=== PATIENT | female | born 1945 | race Caucasian/White ===

== ENCOUNTER → 2017-11-17 | Outpatient (CLI) | payer OTHER, MEDICARE | LOC: FIMAGING 09:20 | PROVIDERS: ATTEND Internal Medicine | DX: R92.8 Other abnormal and inconclusive findings on diagnostic imaging of breast (principal); E03.9 Hypothyroidism, unspecified; Z85.3 Personal history of malignant neoplasm of breast ==

== ENCOUNTER → 2017-12-08 | Outpatient (CLI) | payer OTHER, MEDICARE | LOC: FIMAGING 08:52 | PROVIDERS: ATTEND Internal Medicine | DX: Z13.820 Encounter for screening for osteoporosis (principal); M81.0 Age-related osteoporosis without current pathological fracture; E03.9 Hypothyroidism, unspecified; M48.56XS Collapsed vertebra, not elsewhere classified, lumbar region, sequela of fracture; Z85.3 Personal history of malignant neoplasm of breast; Z78.0 Asymptomatic menopausal state; Z79.899 Other long term (current) drug therapy ==

== ENCOUNTER 2018-07-28 10:38 | Inpatient (IN) | payer OTHER, MEDICARE ==
[2018-07-28 11:59] LABS: PLATELET COUNT 95 10^3/uL (150-400)
--- NOTE | 2018-07-28 12:26 | EDPHY ---
HPI/HX/ROS/PE/MDM Narrative: CLINICAL IMPRESSION: Alcohol abuse, acute alcohol intoxication, suicidal ideations, and on M1 hold ASSESSMENT/PLAN: This is a 73-year-old female with reported medical history of hypothyroidism and alcoholism who presents to the emergency department on an M1 hold by [employer] after her patient assistant called concerned about the patient' s well-being. Patient is alert, cooperative although intoxicated and smells of urine. She admits to making suicidal statements as per M1 hold with reports that she"could not handle it anymore, wanted to fly to [place] [employer] [place] take a bunch of medications and sit on a beach to ". Patient was initially very resistant to receiving a chest x-ray despite bruises to the back and hypoxia but eventually agreed. She has atelectasis with no evidence of underlying rib fracture, pneumothorax, and has no reproducible pain to palpation of the back or chest wall. No clinical indication of closed head injury, Kang sign, hemotympanum, and patient has refused CT scan of the head. Labs indicate urinary tract infection and antibiotic was ordered in the ED. Patient is very intoxicated with an alcohol level over 300. Labs are consistent with thrombocytopenia and anemia possibly secondary to patient's chronic alcohol abuse. No leukocytosis, electrolyte imbalance or renal insufficiency. Patient has no abdominal pain on exam. Low clinical suspicion for acute alcoholic pancreatitis, hepatitis, gastritis. Patient was tolerating p. O. Fluids well and is awaiting formal TLC evaluation pending sobriety. Case signed out to Dr. Guerra at 5:00 p.m.. DIFFERENTIAL DX: Differential includes but not limited to acute alcohol intoxication, infection, toxidrome, electrolyte imbalance, metabolic disturbance ED PROCEDURES: Please see lab and imaging results below ED COURSE: 1:15 p.m.: Patient urine appears infected. Urine culture ordered, antibiotics ordered. She is intoxicated with an alcohol over 300. Will need to reach sobriety before TLC evaluation. CHIEF COMPLAINT: M1 hold for alcohol intoxication and suicidal statements HPI: This is a 73-year-old female who was brought to the emergency department on an M1 hold by police after her patient assistant contacted police over the patient 's well being. Patient is a regular drinker and admits to drinking alcohol recently. She was apparently making statements to her patient assistant today about being unable to handle life anymore and wanting to"fly to [place], take a bunch of medications and sit on a beach and ". Patient admits that she did make this statement. She also admits to frequent falling when I ask her about bruises on her arm and back. She cannot recollect when she last fell. She does not remember hitting her head and has no obvious swelling or bruises to the head. She has no complaints of headache, dizziness, vertigo, vomiting or lightheadedness. She does not take anticoagulation therapy. 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 PMH: Hypothyroidism, alcoholism Pertinent Past Surgical History: None reported Family History: Unable to obtain Social History: Apparently works as a psychologist, chronic alcoholic REVIEW OF SYSTEMS: All other systems negative Constitutional: No fever, no chills, appetite change. Eyes: No discharge, vision change ENT: No sore throat, congestion, ear pain. Cardiovascular: No chest pain, no palpitations. Respiratory: No cough, no shortness of breath. Gastrointestinal: No abdominal pain, no vomiting, diarrhea. Genitourinary: No hematuria, dysuria, flank pain, pelvic pain Musculoskeletal: No back pain, joint swelling, joint pain, myalgias. Skin: No rashes, color change. Neurological: No headache, dizziness, weakness. PHYSICAL EXAM: General Appearance: Alert, oriented, appropriate, cooperative, NAD, well hydrated, non-toxic appearing, hypoxic at 85% on room air, placed on 2 L oxygen HEENT: TMs are clear bilaterally no perforation or FB, no injection, no evidence of serous or mucopurulent otitis. Oropharynx clear is no erythema or exudates, no tonsillar hypertrophy or asymmetry. Dentition without abnormality. No scalp hematoma or swelling Eyes: PERRLA, no acute vision change, nystagmus, swelling, discharge, pain or photosensitivity. Conjunctiva pink, no pallor or injection Neck: Supple, nontender, no lymphadenopathy, no midline pain, FROM, no meningismus. Respiratory: There are no retractions, lungs are clear to auscultation, multiple bruises to the back primarily over the right mid and upper back and left lower flank area. These are not causing the patient pain and she reports no difficulty breathing or moving. Cardiac: Regular rate and rhythm, no murmurs or gallops. Gastrointestinal: Abdomen is soft, nontender, bowel sounds normal, no masses/ hernia, no rigidity, guarding or focal peritoneal findings. Neurological: Alert and oriented x 3, CN 2-12 grossly intact Skin: Warm, dry, no rashes, no nodules on palpation, bruising as noted above as well as bruising to right forearm with full range of motion of elbow and wrist. Musculoskeletal: Extremities are symmetrical, full range of motion, no tenderness, deformity, swelling, or erythema. Psychiatric: Patient is oriented X 3, there is no agitation, smells of alcohol and urine, admits to suicidal thoughts, denies homicidal thoughts. Denies auditory and visual hallucinations MEDICAL DECISION MAKING: Patient was seen independently. Secondary supervising physician at time of evaluation was Dr. Adan. Diagnosis: Alcohol abuse, suicidal ideations. New, requires workup Summary: See Assessment and Plan for summary of ED visit Clinical lab tests: ordered / reviewed. Independent visualization of images, tracing, or specimens: Yes. Decision to obtain medical records or history from someone other than the patient: M1 hold Discussed patient with another provider: Dr. Guerra who took over care of this patient at 5:00 p.m. Patient Progress: Stable . (Colin Sr) MDM: 9:45 p.m. the patient has been evaluated by Mental Health. They do not feel that she meets inpatient criteria. She denies suicidality currently. She is eager to go home. She contracts for safety. She will follow up her psychiatrist tomorrow. 10:20 p.m. I evaluated the patient. She has venous stasis her lower extremities which appears to be a baseline. She has bruises on her back from previous falls. I am somewhat concerned about her ability to care for herself at home especially in the face of urinary tract infection. She does not have any friends who will be with her. I recommended admission the hospital for hydration and antibiotics and to watch for signs of withdrawal. She is currently not tremulous or tachycardic. She eventually agreed with this plan and will stay. 10:30 p.m. I discussed the case with Dr. Padron who will admit to the medical service. (Cullen Guerra) I did not see this patient while she was in the emergency department. However her care was discussed with the PA while the patient was in the department. I agree with treatment plan and management (Bernardo Adan) - Data Points Laboratory Results: Laboratory Results 07/28/18 11:05 07/29/18 04:40 Medications Given: Discontinued Medications Amoxicillin (Amoxicillin) 500 mg PO Q8HRS JOHN PRN Reason: Protocol Stop: 08/29/18 13:59 Last Admin: 08/01/18 13:53 Dose: 500 mg Bupropion HCl (Wellbutrin Xl) 150 mg PO DAILY JOHN Stop: 01/25/19 15:29 Last Admin: 08/01/18 08:52 Dose: 150 mg Cephalexin HCl (Keflex) 500 mg PO EDNOW ONE PRN Reason: Protocol Stop: 07/28/18 13:15 Last Admin: 07/28/18 14:53 Dose: 500 mg Cephalexin HCl (Keflex) 500 mg PO Q6HRS JOHN PRN Reason: Protocol Stop: 08/28/18 14:59 Last Admin: 07/28/18 22:11 Dose: 500 mg Cephalexin HCl (Keflex) 500 mg PO Q6HRS JOHN PRN Reason: Protocol Stop: 08/28/18 05:59 Last Admin: 07/30/18 11:17 Dose: 500 mg Enoxaparin Sodium (Lovenox) 40 mg SC DAILY JOHN Stop: 01/25/19 08:59 Last Admin: 07/29/18 09:20 Dose: Not Given Gabapentin (Neurontin) 300 mg PO HS JOHN Stop: 01/25/19 20:59 Last Admin: 07/31/18 21:51 Dose: 300 mg Magnesium Sulfate/Dextrose (Magnesium Sulf 1 Gm (Premix)) 100 mls @ 100 mls/hr IV ONCE ONE Stop: 07/29/18 13:35 Last Admin: 07/29/18 12:53 Dose: 100 mls Magnesium Sulfate/Dextrose (Magnesium Sulf 1 Gm (Premix)) 100 mls @ 100 mls/hr IV ONCE ONE Stop: 08/01/18 08:47 Last Admin: 08/01/18 08:52 Dose: 100 mls Levothyroxine Sodium (Synthroid) 175 mcg PO DAILY AT 6AM [facility] Stop: 01/24/19 23:44 Last Admin: 07/29/18 06:49 Dose: 175 mcg Levothyroxine Sodium (Synthroid) 175 mcg PO DAILY06 [facility] Stop: 01/26/19 05:59 Last Admin: 08/01/18 06:41 Dose: 175 mcg Lorazepam (Ativan Injection) 0 mg IVP Q1H PRN; Protocol PRN Reason: Alcohol Withdrawal w/IV access Stop: 01/24/19 23:47 Last Admin: 07/31/18 11:58 Dose: 2 mg Melatonin (Melatonin) 3 mg PO HS [facility] Stop: 01/25/19 20:59 Last Admin: 07/31/18 21:51 Dose: 3 mg Multivitamins (Tab-A-Rossy) 1 each PO DAILY JOHN Stop: 01/25/19 08:59 Last Admin: 08/01/18 08:50 Dose: 1 each Multivitamins/Minerals (Preservision Areds2 Formula) 2 each PO DAILY JOHN Stop: 01/26/19 08:59 Last Admin: 08/01/18 08:50 Dose: 2 each Potassium Chloride (Klor-Con) 30 meq PO ONCE ONE PRN Reason: Protocol Stop: 07/29/18 08:58 Last Admin: 07/29/18 11:56 Dose: 30 meq Potassium Chloride (Klor-Con) 10 - 40 meq PO ONCE ONE PRN Reason: Protocol Stop: 07/29/18 20:15 Last Admin: 07/29/18 21:31 Dose: 20 meq Potassium Chloride (Klor-Con) 10 - 40 meq PO ONCE ONE PRN Reason: Protocol Stop: 07/30/18 07:40 Last Admin: 07/30/18 08:38 Dose: 20 meq Potassium Chloride (Klor-Con) 20 meq PO ONCE ONE PRN Reason: Protocol Stop: 07/31/18 10:02 Last Admin: 07/31/18 11:59 Dose: 20 meq Potassium Chloride (Klor-Con) 10 - 40 meq PO ONCE ONE PRN Reason: Protocol Stop: 08/01/18 09:12 Last Admin: 08/01/18 10:03 Dose: 20 meq Thiamine HCl (Vitamin B-1) 100 mg PO DAILY [facility] Stop: 01/24/19 23:44 Last Admin: 07/29/18 00:25 Dose: 100 mg Thiamine HCl (Vitamin B-1) 100 mg PO DAILY JOHN Stop: 01/25/19 08:59 Last Admin: 08/01/18 08:52 Dose: 100 mg General Time Seen by Provider: 07/28/18 11:59 Initial Vital Signs: Initial Vital Signs Temperature (C) 36.4 C 07/28/18 10:38 Heart Rate 88 07/28/18 10:38 Respiratory Rate 16 07/28/18 10:38 Blood Pressure 152/77 H 07/28/18 10:38 O2 Sat (%) 88 L 07/28/18 10:38 O2 Delivery Mode Room Air O2 (L/minute) 2 Allergies/Adverse Reactions: No Known Allergies Allergy (Unverified 07/28/18 10:54) Home Medications: Medication Instructions Recorded Levothyroxine [Synthroid 175 mcg 175 mcg PO DAILY06 07/28/18 (*)] buPROPion XL [Wellbutrin 150mg XL] 150 mg PO DAILY 07/28/18 Ascorbic Acid [Vitamin C 500 mg 500 mg PO DAILY 07/29/18 (*)] C/E/Zn/Cu/OM3/DHA/EPA/LUT/ZEAX 2 each PO DAILY 07/29/18 [Preservision Areds 2 Softgel] Carboxymethylcellulose 1% [Refresh 1 drop EACHEYE DAILY PRN 07/29/18 Celluvisc (*)] Herbals/Supplements -Info Only 1 ea PO DAILY 07/29/18 Vitamin B Complex [Vitamin B 1 each PO DAILY 07/29/18 Complex (OTC)] Amoxicillin Trihydrate [Amoxil] 500 mg PO Q8HRS #10 cap 08/01/18 Gabapentin [Neurontin 300 MG (*)] 300 mg PO HS #0 cap 08/01/18 Melatonin [Melatonin 3 MG (*)] 3 mg PO HS tab 08/01/18 Multivitamins [Multivitamin (*)] 1 each PO DAILY tab 08/01/18 Thiamine HCl [Vitamin B-1] 100 mg PO DAILY tab 08/01/18 Departure - Departure Disposition: [facility] Acute Clinical Impression: Alcoholic intoxication, Depression, Urinary tract infection Condition: Good
[2018-07-28] MEDS ORDERED: CEPHALEXIN 500 MG CAP PO ONE ×2 (13:14→22:00)
--- NOTE | 2018-07-28 22:53 | PDGENHP ---
History and Physical History and Physical: CC: Brought by police on M1 hold after making a statement of suicidal ideation , intoxicated HISTORY: This is a 73-year-old female who was brought to the emergency department on an M1 hold by police after her assistant librarian contacted police over the patient 's well being. Patient is a regular drinker and admits to drinking alcohol recently. She was apparently making statements to her assistant librarian today about being unable to handle life anymore and wanting to"fly to [place], take a bunch of medications and sit on a beach and ". Patient admits that she did make this statement. However she states she was making it retorically, and she denies any intent and states she does not truly wish to . Review of her outpatient clinic records at this time shows that she has a history of seasonal affective disorder, in that she did call to her primary care physician's office 4 months ago requesting referral to a psychiatrist. She is taking Wellbutrin for depression at home at this time and finds it moderately effective she thinks. There is no psychosis or symptoms there of. The patient does admit to drinking vodka quite heavily. There is a prior history of alcoholism but she says she started drinking heavily 2 or 3 months ago She also admits to frequent falling when I ask her about bruises on her arm and back. She cannot recollect when she last fell. She does not remember hitting her head and has no obvious swelling or bruises to the head. She has no complaints of headache, dizziness, vertigo, vomiting or lightheadedness. She does not take anticoagulation therapy. No symptoms of injuries otherwise. Additionally the patient complains of urinary frequency and partial voiding new onset today ROS: Complains of the numbness in the toes of both feet without any neuropathic pain type symptoms or radicular symptoms. Difficult to determine time of onset A comprehensive 10 system review revealed no other significant findings PAST MEDICAL HISTORY: Breast cancer treated with lumpectomy in 2016 Seasonal affective disorder Increase cool on fall risk screen Hypothyroidism Herpes simplex Osteoporosis with thoracic compression fracture nontraumatic Vitamin D deficiency Senile macular degeneration FAMILY MEDICAL HISTORY: Stroke COPD Arrhythmia Breast cancer Diabetes type 1 SOCIAL HISTORY: Retired psychologist Former smoker As above drinking vodka quite heavily at home, quantity hard to determine. No street drugs MEDICATIONS: The patients list has been reconciled by our clinical pharmacist in the EMR. I have reviewed the list and ordered appropriate medicines. PHYSICAL EXAMINATION: Vital Signs: Normal without fever Examination: General: alert, oriented, good mentation, relaxed Skin: warm, dry, good color, no rash HEENT: normal Neck: no mass or jvd Resps: relaxed Lungs: clear breath sounds Heart: regular, no murmur Abdomen: soft, nondistended, nontender, +BS, no mass Upper Extremities: normal Lower Extremities: no edema, warm No Bleeding or bruising Neurologic: normal speech/language, normal trestle builder, no focal weakness IV site: looks normal LABORATORY DATA: Alcohol level 368, negative urine drug screen (last drink hours before presentation with the patient wide awake) CBC shows macrocytosis without anemia and thrombocytopenia, both of which are new since November of this year Basic metabolic panel today is normal Her last TSH was in May of this year elevated at 8.9 with normal free T4 Urinalysis today shows 50-180 white cells, 3 red cells, 3+ leukocyte esterase RADIOLOGY STUDIES: Two-view chest x-ray done in the ER I reviewed images, there is mild anterior compression of a thoracic vertebral body probably T9 or 10, no acute cardiopulmonary abnormalities no acute appearing fractures ASSESSMENT: * Depression with suicidal ideation but no plans or intent -brought to ER by police on M1 hold, M1 hold released by ER after mental health team evaluation on day of admission * Alcoholism, acute alcohol intoxication (presents wide awake and mostly oriented with alcohol level 368) -patient wishes to discontinue alcohol at this time and has high risk for withdrawal -suspect thiamine deficiency * Urinary tract infection, symptomatic but uncomplicated -however may be contributing to her gait instability and falls * Gait instability, falls at home, contusions; felt unsafe for return home at this time * Recent onset of bilateral leg edema, with bilateral stasis dermatitis -absence of leg pain and shortness of breath with normal chest x-ray; could be venous stasis disease but would be prudent to rule out thromboembolic disease and pulmonary hypertension * Hypothyroidism with recent change in her thyroid dose -timing difficult to discern; high TSH in May lead to an increased dose from 150-175 mcg thyroxine, however patient states she thinks it may have only been 3 weeks since she got the new prescription * peripheral neuropathy which I suspect is alcohol related; this may aggravate her gait instability and fall risk * Macrocytosis and thrombocytopenia, probably both related to alcohol use PLANS: * Admit to observation status due to fall risk unsafe for return to home; moderate chance she will need to stay either for fall risk reasons or withdrawal reasons and would need to changed inpatient * Physical occupational therapy assessment * Observe for possible alcohol withdrawal syndrome with [facility] protocol in place * Thiamin replacement therapy * Empiric antibiotic therapy for UTI with culture pending * Echocardiogram and bilateral Doppler ultrasound of legs to assess her bilateral leg edema * Elevation, low sodium diet, Vladimir stockings for treatment of stasis dermatitis * Outpatient follow-up with mental health as per recommendation of mental health team * Repeat TSH here to see if it is improving on new thyroid dose, notably uncertain timing of when she actually increased her dose as above * Check a B12 level with her macrocytosis though this is likely alcohol induced I have reviewed the patient's case in detail with Dr. Cullen Guerra I have reviewed the patient's past medical records as part of this assessment, including outpatient clinic records
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
[2018-07-28] MEDS ORDERED: ACETAMINOPHEN 325 MG TAB PO PRN (23:45)
[2018-07-28] MEDS ORDERED: THIAMINE HCL 100 MG TAB PO SCH (23:45)
[2018-07-28] MEDS ORDERED: ONDANSETRON 4 MG/2 ML VIAL IVP PRN (23:45)
[2018-07-28] MEDS ORDERED: FLUMAZENIL 0.5 MG/5 ML MDV IVP PRN (23:48)
[2018-07-29] MEDS: LEVOTHYROXINE 175 MCG TAB PO SCH ×2 (00:25→06:49)
[2018-07-29] MEDS: CEPHALEXIN 500 MG CAP PO SCH ×4 (06:49→23:19)
--- NOTE | 2018-07-29 08:21 | HOSPPROG ---
Hospitalist Progress Note Assessment/Plan: * Depression with suicidal ideation - currently denies. M1 hold released by TLC team. * Acute alcohol intoxication - BAL 368 on arrival, wishes to detox and maintain sobriety -cont CIWA * Alcoholic hepatitis - pain free. discussed importance of cessation -check INR to calculate DF, doubt qualifies for steroids -trend lft's, consider u/s if persist elevated -send hepatitis panel for completeness * Urinary tract infection, symptomatic but uncomplicated -cont atbx, await Cx data * Gait instability, falls at home, contusions; felt unsafe for return home at this time -cont thiamine -PT/OT * Bilateral leg edema, with bilateral stasis dermatitis -LE u/s neg for dvt -echo today -low Na diet -compression stockings * Hypothyroidism - cont home levothyroxine * peripheral neuropathy - suspect is alcohol related; this may aggravate her gait instability and fall risk -start gabapentin * Macrocytosis and thrombocytopenia, probably both related to alcohol use. B12 nl. -follow plts * Dispo - change to inpt for etoh detox and UTI * DVT PPLX - Lovenox Subjective: Pt feels better. Notes concern about difficulty with ambulation. Has numbness in toes, no pain or tingling. Says she wants to quit drinking. No CP, SOB, abdominal pain, N/V. Tolerating po. Objective: Vital Signs Temp Pulse Resp BP Pulse Ox 36.6 C 94 16 164/85 H 93 07/29/18 07:45 07/29/18 07:45 07/29/18 07:45 07/29/18 07:45 07/29/18 07:45 Laboratory Results 07/29/18 04:40 07/28/18 07/29/18 07/30/18 05:59 05:59 05:59 Intake Total 1500 Output Total 1250 Balance 250 - Physical Exam Constitutional: no apparent distress Eyes: PERRL Ears, Nose, Mouth, Throat: moist mucous membranes Cardiovascular: regular rate and rhythym Respiratory: no respiratory distress, clear to auscultation Gastrointestinal: normoactive bowel sounds, soft, non-tender abdomen Skin: warm Musculoskeletal: full muscle strength Neurologic: AAOx3 Psychiatric: interacting appropriately ICD10 Worksheet Patient Problems: Problems Problem Status Onset Alcoholic intoxication Acute Depression Acute Urinary tract infection Acute
[2018-07-29] MEDS ORDERED: PROTOCOL POTASSIUM 1 DOSE MISC PRN (08:22)
[2018-07-29] MEDS ORDERED: PROTOCOL MAGNESIUM 1 DOSE IV PRN (08:22)
[2018-07-29] MEDS ORDERED: ENOXAPARIN 40 MG/0.4 ML SYR SC SCH (09:00)
[2018-07-29] MEDS: POTASSIUM CL 10 MEQ TAB PO ONE ×2 (09:20→11:56)
[2018-07-29] MEDS: LORazepam 2 MG/ML INJ IVP PRN ×2 (09:22→21:31)
[2018-07-29] MEDS: MULTIVITAMINS 1 EACH TAB PO SCH (09:22)
[2018-07-29] MEDS: THIAMINE HCL 100 MG TAB PO SCH (09:22)
--- NOTE | 2018-07-29 10:34 | PDMN ---
Medical Necessity Medical necessity: Pt meets IP criteria as of 07/29/2018 per and TERELL M-595 ( substance- related disorders); los > 2 mn for ongoing tx and management of etoh detox in the setting of alcoholic hepatits as well as UTI and gait instability with frequent falls; requiring CIWA protocol, serial labs, and therapies.
--- NOTE | 2018-07-29 10:45 | ECHO ---
[email or web address] [address] [address] Main: [phone] Fax: Transthoracic Echocardiogram Name: NATHAN ALMEIDA MR#: [id number] Study Date: 07/29/2018 Study Time: 10:02 AM Date of : 1945 Age: 73 year(s) Height: 152.4 cm (60 in.) Weight: 83.92 kg (185 lb.) BSA: 1.81 m2 Gender: Female Examination: Echo Indication: Bilateral leg edema new onset Image Quality: Contrast: Requested by: Kendall Padron BP: 164 mmHg/85 mmHg Heart Rate: Rhythm: Indication: Bilateral leg edema new onset Procedure Staff Journal Box Inspector: Aretha Ahuja RDCS Reading Physician: Chidi Horan MD Requesting Provider: Conclusions: No pericardial effusion. Preserved LV systolic function with ejection fraction of 55%. Mild to moderate tricuspid regurgitation with right ventricular systolic pressure measured at 55 mm of mercury. Measurements: Chambers Valvular Assessment AV/MV Valvular Assessment TV/PV Normal Normal Normal Name Value Range Name Value Range Name Value Range Ao Evonne (2D): 2.8 cm (1.4 cm-2.6 AV Vmax: 1.61 m/s (1 m/s-1.7 TR Vmax: 3.52 mm/s ( - ) cm) m/s) TR PGmax: 50 mmHg ( - ) IVSd (2D): 1.0 cm (0.6 cm-1.1 AV maxP mmHg ( - ) syst. PAP: 55 mmHg ( - ) cm) AV meanP mmHg ( - ) PV Vmax: 1.19 m/s (0.6 m/s-0.9 LVDd (2D): 4.1 cm (3.9 cm-5.3 AJ (VTI): 2.2 cm ( - ) m/s) cm) MV E Vmax: 1.00 m/s ( - ) PV PGmax: 6 mmHg ( - ) LVDs (2D): 3.1 cm (2.1 cm-4 MV A Vmax: 1.03 m/s ( - ) cm) MV E/A: 0.97 ( - ) LVPWd (2D): 0.9 cm ( - ) MV PHT: 0.062 s ( - ) LVOTd 1.8 cm 1.8 cm mm MVA (PHT): 3.5 s ( - ) LVEF (2D): 50 (>=54 %) Visual EF: 55 % RVDd(2D): 2.6 cm (1.9 cm-3.8 cmmm) Continued Measurements: Chambers Valvular Assessment AV/MV Valvular Assessment TV/PV Name Value Name Value Name Value LADs: 2.9 cm MV DecTime: 197 m/s CVP (est.): 5 mmHg RA Area: 15.4 cm2 MV E' Septal: 0.08 m/s MV E/E' Septal: 12.30 Patient: NATHAN ALMEIDA Study Date: 07/29/2018 Page 1 of 2 10:02 AM MV E/E' Lateral: 8.30 Additional Vessels Name Value Ao Ascendin.9 cm Findings: Left Ventricle: Normal size left ventricle. No LV hypertrophy. Normal global systolic LV function. The ejection fraction is visually estimated to be 55 %. No regional wall motion abnormality. Normal diastolic LV function. Right Ventricle: Normal size right ventricle. Normal RV function. Left Atrium: The left atrium is normal in size. Right Atrium: The right atrium is normal in size. Mitral Valve: The mitral valve is normal in appearance and function. No mitral stenosis is present. Mild mitral valve regurgitation is present. Aortic Valve: The aortic valve is tri-leaflet. Trivial aortic valve regurgitation. No aortic valve stenosis is present. Tricuspid Valve: The tricuspid valve is normal in appearance and function. Mild to moderate tricuspid valve regurgitation. The pulmonary artery pressure is moderately increased. Right ventricular systolic pressure measures 55mmHg. Pulmonic Valve: The pulmonic valve is normal in appearance and function. Trivial pulmonic valve regurgitation. Aorta: The aorta is normal. Normal size aortic root measuring 2.8 cm. Normal size ascending aorta measuring 2.9 cm. IVC: The IVC is normal sized. Pericardium: Trivial pericardial effusion. There is pericardial fat. No pleural effusion. Exam Comments: Technically difficult apical imaging. Patient has history of breast radiation. Difficulty tolerating any pressure on left side. (No Signature Object) Patient: NATHAN ALMEIDA Study Date: 07/29/2018 Page 2 of 2 10:02 AM [id number]
[2018-07-29] MEDS ORDERED: POTASSIUM CL 10 MEQ TAB ONE (11:52)
[2018-07-29] MEDS ORDERED: MAGNESIUM SULF 1 GM/DEXTROSE 100 ML IV ONE (12:36)
[2018-07-29] MEDS ORDERED: THIAMINE HCL 500 MG in NS 100 ML IV SCH (14:00)
[2018-07-29] MEDS ORDERED: CEPHALEXIN 500 MG CAP PO SCH (15:00)
--- NOTE | 2018-07-29 15:55 | ASMTCMCOM ---
CM Note CM Note Notes: Pt is a 73 y/o female admitted for UTI, alcoholism and depression. PT is recommending SNF. CM met w/ pt for dispo planning. Pt reports that she will need to think about going to a SNF. CM explained another option could be HC with private duty caregivers. Pt is agreeable for CM to making referrals to SNF and to HC agencies. CM provided pt w/ senior blue book and a list of private duty caregivers. Pt explained that she would like to stay in [place]. CAGE completed. Pt reports that she has the resources for her drinking. Pt reports that she has a psychiatrist. CM to follow. Plan: TBD Date Signed: 07/29/2018 03:54 PM Electronically Signed By:KADY Rangel
--- NOTE | 2018-07-29 15:56 | ASMTCAGE ---
CAGE Do you feel you ought to Answers: Yes cut down on your drinking or drug use? Do people annoy you by Answers: No criticizing your drinking or drug use? Do you feel guilty about Answers: No your drinking or drug use? Do you drink or use drugs Answers: Yes first thing in the morning ([employer])? Date Signed: 07/29/2018 03:55 PM Electronically Signed By:KADY Rangel
[2018-07-29] MEDS: buPROPion XL 150 MG TAB PO SCH (17:25)
[2018-07-29 17:47] LABS: INR 1.18 (0.83-1.16); PROTIME(PATIENT) 15.2 SEC (12.0-15.0)
[2018-07-29] MEDS ORDERED: CARBOXYMETHYLCELLULOSE 1% 0.4 ML DROPERETTE EACHEYE PRN (18:22)
[2018-07-29] MEDS ORDERED: POTASSIUM CL 10 MEQ TAB PO ONE (20:14)
[2018-07-29] MEDS: MELATONIN 3 MG TAB PO SCH (21:31)
[2018-07-29] MEDS: GABAPENTIN 300 MG CAP PO SCH (21:31)
[2018-07-30] MEDS: CEPHALEXIN 500 MG CAP PO SCH ×2 (05:10→11:17)
[2018-07-30] MEDS: LEVOTHYROXINE 175 MCG TAB PO SCH (05:10)
[2018-07-30] MEDS ORDERED: POTASSIUM CL 10 MEQ TAB PO ONE (07:39)
[2018-07-30] MEDS: PRESERVISION AREDS2 FORMULA EYE VIT 1 EACH PO SCH (08:37)
[2018-07-30] MEDS: MULTIVITAMINS 1 EACH TAB PO SCH (08:38)
[2018-07-30] MEDS: buPROPion XL 150 MG TAB PO SCH (08:38)
[2018-07-30] MEDS: THIAMINE HCL 100 MG TAB PO SCH (08:38)
--- NOTE | 2018-07-30 13:11 | HOSPPROG ---
Hospitalist Progress Note Assessment/Plan: * Depression with suicidal ideation - currently denies. M1 hold released by TLC team. * Acute alcohol intoxication - BAL 368 on arrival, has had just mild w/d, ciwa' s low -cont CIWA * Alcoholic hepatitis - pain free. discussed importance of cessation. DF 11, no indication for steroids -u/s showed steatosis * Urinary tract infection - polymicrobial with e coli and enterococcus -change to amox based on e coli sensitivities and enterococcus more likely sensitive to amox (awaiting sensitivities) * Gait instability, falls at home, contusions; felt unsafe for return home at this time -cont thiamine -PT/OT * Bilateral leg edema, with bilateral stasis dermatitis, LE u/s neg for dvt, echo reviewed- ef normal -low Na diet -compression stockings * Hypothyroidism - cont home levothyroxine * peripheral neuropathy - suspect alcohol related; this may aggravate her gait instability and fall risk -started gabapentin * Macrocytosis and thrombocytopenia, probably both related to alcohol use. B12 nl. -follow plts * Dispo - cont inpt, planning for SNF Wednesday * DVT PPLX - Lovenox held with low plts, SCD's and ambulation Subjective: Pt feels better. She denies pain. Ambulating with walker, still feels unsteady on her feet. No fevers/chills. No urinary symptoms. No N/V. Taking po well. Objective: Vital Signs Temp Pulse Resp BP Pulse Ox 36.3 C 92 18 147/76 H 94 07/30/18 11:10 07/30/18 11:10 07/30/18 11:10 07/30/18 11:10 07/30/18 11:10 Laboratory Results 07/30/18 05:11 07/30/18 05:11 07/29/18 07/30/18 07/31/18 05:59 05:59 05:59 Intake Total 800 Output Total 1900 Balance -1100 PT 15.2 SEC (12.0-15.0) H 07/29/18 17:25 INR 1.18 (0.83-1.16) H 07/29/18 17:25 - Physical Exam Constitutional: no apparent distress Eyes: PERRL Ears, Nose, Mouth, Throat: moist mucous membranes Cardiovascular: regular rate and rhythym Respiratory: no respiratory distress, clear to auscultation Gastrointestinal: normoactive bowel sounds, soft, non-tender abdomen Skin: warm Musculoskeletal: full muscle strength, other (b/l mild stasis dermatitis) Neurologic: AAOx3 Psychiatric: interacting appropriately ICD10 Worksheet Patient Problems: Problems Problem Status Onset Alcoholic intoxication Acute Depression Acute Urinary tract infection Acute
[2018-07-30] MEDS: MELATONIN 3 MG TAB PO SCH (20:45)
[2018-07-30] MEDS: GABAPENTIN 300 MG CAP PO SCH (20:45)
[2018-07-31] MEDS: LEVOTHYROXINE 175 MCG TAB PO SCH (05:23)
[2018-07-31] MEDS: buPROPion XL 150 MG TAB PO SCH (09:37)
[2018-07-31] MEDS: PRESERVISION AREDS2 FORMULA EYE VIT 1 EACH PO SCH (09:37)
[2018-07-31] MEDS: THIAMINE HCL 100 MG TAB PO SCH (09:37)
[2018-07-31] MEDS: MULTIVITAMINS 1 EACH TAB PO SCH (09:37)
[2018-07-31] MEDS ORDERED: POTASSIUM CL 10 MEQ TAB PO ONE (10:01)
[2018-07-31] MEDS: LORazepam 2 MG/ML INJ IVP PRN (11:58)
--- NOTE | 2018-07-31 15:18 | HOSPPROG ---
Hospitalist Progress Note Assessment/Plan: * Depression with suicidal ideation - currently denies. M1 hold released by TLC team. * Acute alcohol intoxication - BAL 368 on arrival, has had just mild w/d, ciwa' s low -cont CIWA * Alcoholic hepatitis - pain free. discussed importance of cessation. DF 11, no indication for steroids -u/s showed steatosis * Urinary tract infection - polymicrobial with e coli and enterococcus -changed to amox, which should cover both orgs * Gait instability, falls at home, contusions; felt unsafe for return home at this time -cont thiamine -PT/OT * Bilateral leg edema, with bilateral stasis dermatitis, LE u/s neg for dvt, echo reviewed- ef normal -low Na diet -compression stockings * Hypothyroidism - cont home levothyroxine * peripheral neuropathy - suspect alcohol related; this may aggravate her gait instability and fall risk -started gabapentin * Macrocytosis and thrombocytopenia, probably both related to alcohol use. B12 nl. -follow plts * Dispo - cont inpt, planning for SNF Wednesday * DVT PPLX - Lovenox held with low plts, SCD's and ambulation Subjective: Pt feels ok, still poor appetite and unsteady on her feet. Worried about her house and car issues if she goes to SNF. No more significant w/d issues. No fevers/chills. No N/V. No CP or SOB. Objective: Vital Signs Temp Pulse Resp BP Pulse Ox 36.4 C 89 18 171/106 H 96 07/31/18 11:31 07/31/18 11:31 07/31/18 11:31 07/31/18 11:31 07/31/18 11:31 Laboratory Results 07/31/18 05:30 07/31/18 05:30 07/30/18 07/31/18 08/01/18 05:59 05:59 05:59 Intake Total 800 450 Output Total 1900 700 300 Balance -1100 -250 -300 PT 15.2 SEC (12.0-15.0) H 07/29/18 17:25 INR 1.18 (0.83-1.16) H 07/29/18 17:25 - Physical Exam Constitutional: no apparent distress Eyes: PERRL Ears, Nose, Mouth, Throat: moist mucous membranes Cardiovascular: regular rate and rhythym Respiratory: no respiratory distress, clear to auscultation Gastrointestinal: normoactive bowel sounds, soft, non-tender abdomen Skin: warm Musculoskeletal: full muscle strength Neurologic: AAOx3 Psychiatric: interacting appropriately ICD10 Worksheet Patient Problems: Problems Problem Status Onset Alcoholic intoxication Acute Depression Acute Urinary tract infection Acute
[2018-07-31] MEDS: MELATONIN 3 MG TAB PO SCH (21:51)
[2018-07-31] MEDS: GABAPENTIN 300 MG CAP PO SCH (21:51)
[2018-08-01] MEDS: LEVOTHYROXINE 175 MCG TAB PO SCH (06:41)
[2018-08-01] MEDS ORDERED: MAGNESIUM SULF 1 GM/DEXTROSE 100 ML IV ONE (07:48)
[2018-08-01] MEDS: PRESERVISION AREDS2 FORMULA EYE VIT 1 EACH PO SCH (08:50)
[2018-08-01] MEDS: MULTIVITAMINS 1 EACH TAB PO SCH (08:50)
[2018-08-01] MEDS: THIAMINE HCL 100 MG TAB PO SCH (08:52)
[2018-08-01] MEDS: buPROPion XL 150 MG TAB PO SCH (08:52)
[2018-08-01] MEDS ORDERED: POTASSIUM CL 10 MEQ TAB PO ONE (09:11)
--- NOTE | 2018-08-01 11:38 | PDIAF ---
- Diagnosis Diagnosis: alcohol withdrawal, falls, neuropathy Code Status: Full Code - Medication Management Discharge Medications: electronically signed and located in the Home Medication List. PICC Care - Routine: N/A - Orders Services needed: Registered Nurse, Physical Therapy, Occupational Therapy Diet Recommendation: sodium restricted - Labs/Radiology CBC w/diff Date: 08/08/18 CMP Date: 08/08/18 - Follow Up Care Current Providers and Referrals: Patient,NotPresent [Unknown] - As per Instructions
[2018-08-01 11:59] VITALS: BP 148/106
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
--- NOTE | 2018-08-01 14:23 | ASMTDCNOTE ---
Case Management Discharge Discharge Order Complete? Answers: Yes Patient to Obtain Answers: Other Notes: [facility] SNF Medications Transportation Arranged Answers: Other Notes: Vandana Brown ir Transport will Pick (Date 08/01/2018 12:00 AM & Time) Case Management Transport Answers: Yes Notes: Face sheet for Diana Sims Faxed Final Orders Answers: Yes Notes: [facility] Agency/Facility Transfer Answers: Yes Notes: [facility] Report Printed & Faxed to Receiving Agency Discharge Comments Notes: Patient is discharging to [facility] SNF for rehab today. Marli from [facility] is checking patient's house to make sure it is locked so the patient doesn't worry. Transport set up with erick Brown for 2:30 PM. Face sheet at nurses station for [facility]. Transfer of care summary and discharge summaries have been Allscripted to [facility]. No further needs. Date Signed: 08/01/2018 01:38 PM Electronically Signed By:Nakia Fontenot LCSW
--- NOTE | 2018-08-01 14:23 | ASMTTCLDSP ---
TLC Discharge Disposition Disposition: Answers: Discharge Disposition Notes: Notes: Pt was admitted medically. Discharge Concerns/Recommendations: Notes: In consultation with [facility] ED physician, Cullen Guerra MD concurred that pt does not appear to meet 27-65 criteria requiring psychiatric hospitalization as pt does not appear to be an imminent risk of harm to self/others/gravely disabled due to a mental illness condition. Psychiatrist vacating M1 Cullen Guerra MD Hold: Date and time M1 hold 07/28/2018 10:30 PM vacated (time format is hh:mm): Hold initiated by: Answers: Police Date Signed: 08/01/2018 01:46 PM Electronically Signed By:Nakia Fontenot LCSW
--- NOTE | 2018-08-01 18:47 | GDS ---
DATES OF SERVICE: 07/29/2018 - 08/01/2018 DISCHARGE DIAGNOSES: 1. Alcohol dependence, presenting with acute alcohol intoxication. 2. Alcohol-induced hepatitis. 3. Mild alcohol withdrawal. 4. Depression with suicidal ideation, resolved. M1 hold released by the behavioral health team. 5. Urinary tract infection, polymicrobial, with Escherichia coli and Enterococcus. 6. Gait instability with falls. 7. Peripheral neuropathy. 8. Bilateral lower extremity edema with stasis dermatitis, lower extremity ultrasound negative for deep vein thrombosis. 9. Hypothyroidism. 10. Thrombocytopenia, likely secondary to bone marrow suppression in the setting of alcohol abuse. CONSULTANTS: None. HISTORY: For details, please see history and physical dated July 28, 2018. In brief, the patient is a 73-year-old female with history of alcohol abuse, who presented to the emergency department intoxicated after making statements of suicidal ideation. She was admitted to the hospital for further management. HOSPITAL COURSE: The patient was admitted to the med/surg unit. It was noted that she had gait instability and has been having more falls at home. She had an abnormal urinalysis with questionable symptoms, and her urine culture grew E coli and Enterococcus, both ampicillin sensitive. She was ultimately treated with a planned 5-day course of amoxicillin. She had very mild withdrawal symptoms. Her LFTs were elevated, consistent with alcohol-induced hepatitis. Cessation is encouraged, and the patient is committed to maintaining sobriety. She was started on Neurontin for her peripheral neuropathy, which may help with her gait instability. Evaluation by the therapy team suggested she would benefit from a stint in rehab. She was treated with vitamins. We discussed her thrombocytopenia being related to bone marrow suppression, and this should be followed up by her outpatient primary care physician to ensure this is improving. Due to the thrombocytopenia, she was not given any pharmacologic DVT prophylaxis,but SCDs were placed. She may benefit from ongoing compression stocking therapy. She was continued on her outpatient dose of levothyroxine. She did have a mildly elevated TSH, and this should be rechecked in 4-6 weeks with a consideration of increasing her levothyroxine dose. On the day of discharge, the patient's vital signs are stable, and she agrees to discharge to intermediate facility. DISPOSITION: Patient is discharged to intermediate facility in stable condition. FOLLOWUP: Patient is to follow up with her primary care physician in 1-2 weeks. DISCHARGE MEDICATIONS: Please see [facility] for completed outpatient medication list. New medications on discharge include: 1. Amoxicillin 500 mg p.o. q.8 hours, #10, no refills, to complete a 5-day course. 2. Gabapentin 300 mg p.o. q.h.s. 3. Melatonin 3 mg p.o. q.h.s. 4. Multivitamin 1 p.o. daily. 5. Thiamine 100 mg p.o. daily. She will continue all other outpatient medications as previously prescribed. /[id number]/MODL MTDD
== END 2018-08-01 14:30 | DRG 897 ==
LOC: EDUNIT# → EDSEX → F3E 23:39 → OBSVTOIN 07-29 08:18
PROVIDERS: ADMIT Internal Medicine; ATTEND Internal Medicine
DX: F10.229 Alcohol dependence with intoxication, unspecified (principal); N39.0 Urinary tract infection, site not specified; Y90.8 Blood alcohol level of 240 mg/100 ml or more; F32.9 Major depressive disorder, single episode, unspecified; F10.239 Alcohol dependence with withdrawal, unspecified; B96.20 Unspecified Escherichia coli [E. coli] as the cause of diseases classified elsewhere; K70.10 Alcoholic hepatitis without ascites; B95.2 Enterococcus as the cause of diseases classified elsewhere; E03.9 Hypothyroidism, unspecified; R26.89 Other abnormalities of gait and mobility; G62.9 Polyneuropathy, unspecified; I83.10 Varicose veins of unspecified lower extremity with inflammation; D69.59 Other secondary thrombocytopenia
CPT/HCPCS: 80305; 82607-90; 97110-GP; 97116-GP; 97162-GP; 97166-GO; 97530-GP; 97535-GO; G0480; G8978-GP-CK; G8979-GP-CJ; G8980-GP-CI; G8987-GO-CK; G8988-GO-CI; J1650; J2060; J3475

== ENCOUNTER → 2018-11-02 | Outpatient (CLI) | payer OTHER, MEDICARE | LOC: FIMAGING 09:31 | PROVIDERS: ATTEND Internal Medicine | DX: Z12.31 Encounter for screening mammogram for malignant neoplasm of breast (principal); Z85.3 Personal history of malignant neoplasm of breast; Z98.890 Other specified postprocedural states ==

== ENCOUNTER 2019-01-26 13:35 | Emergency (ER) | payer OTHER, MEDICARE | END 2019-01-26 15:52 | disposition home or self-care (01) ==